=== PATIENT | male | born 1950 | race Caucasian/White ===

== ENCOUNTER → 2016-05-04 | Outpatient (CLI) | payer BC ==
[~2016-05-04] MED LIST: ASPEC81 PO; GARL10007 PO; GLIP5TAB11 PO; METF500T PO; MISC1CAP60 PO; MULT-506 PO; PRVC/40 PO; TADA5TAB11 PO; UBIQ1CAP4 PO; ZNTT/150 PO
--- NOTE | 2016-05-08 10:21 | CODING QUERY MEDICAL NECESSITY ---
SUPPORTING DIAGNOSIS NEEDED Dr. Rogers, A supporting diagnosis is required for the test/procedure performed on this patient in order for us to be reimbursed by the patient's insurance. Please provide a supporting diagnosis for the following test/procedure listed below next to the test name along with your signature. *If there is no additional diagnosis for this patient that would support the following test/procedure please document that below next to the test/procedure. Test(s)/Procedure(s) that require a supporting diagnosis: * [id number] PSA DIAGNOSIS: DATE OF SERVICE: 05/04/16 Provider Signature: Date: Thank you Ronak Woodward [facility] Information Management Once completed, please kindly fax back to [phone] For questions please call [phone]
== END | disposition home or self-care (01) ==
LOC: C.LAB1850 11:49
PROVIDERS: ATTEND Nurse Practitioner Family
DX: E55.9 Vitamin D deficiency, unspecified (principal); E29.1 Testicular hypofunction; M79.1 Myalgia

== ENCOUNTER → 2016-06-18 | Outpatient (CLI) | payer BC ==
[~2016-06-18] VITALS: Ht 180.3 cm; Wt 121.2 kg
[2016-06-18 16:11] VITALS: BP 144/88; PULSE 73; Ht 180.3 cm; Wt 121.2 kg
== END | disposition home or self-care (01) ==
LOC: C.NEUR 16:00
PROVIDERS: ATTEND Internal Medicine Pulmonary Disease
DX: G47.33 Obstructive sleep apnea (adult) (pediatric) (principal)

== ENCOUNTER → 2016-07-28 | Outpatient (CLI) | payer BC ==
[~2016-07-28] MED LIST changes: +ASPI-461 PO; +DOCU-94 PO; +MISCCAP80 PO; +TPRSR/25 PO
[2016-07-28 10:54] LABS: ALB/GLOB RATIO 1.1 (0.9-2); ALKALINE PHOSPHATASE 88 U/L (45-117); ALT/SGPT 28 U/L (12-78); AST/SGOT 18 U/L (15-37); BLOOD UREA NITROGEN 12 mg/dl (7-18); BUN/CREATININE RATIO 13.2 (10-20); CALCIUM 8.7 mg/dl (8.5-10.1); CARBON DIOXIDE 28 mmol/L (21-32); CHLORIDE 103 mmol/L (98-107); CREATININE 0.91 mg/dl (0.60-1.40); ESTIMATED AVERAGE GLUCOSE 171 mg/dl; GLUCOSE 179 mg/dl (70-99); HA1C FLAG Normal (Normal); HDL CHOLESTEROL 41 mg/dl; POTASSIUM 3.9 mmol/L (3.5-5.1); SODIUM 137 mmol/L (136-145)
[2016-07-28 10:57] LABS: CHOLESTEROL 184 mg/dl (0-200); CHOLESTEROL/HDL RATIO 4.5; LDL CHOLESTEROL CALCULATED 104 mg/dl; TRIGLYCERIDES 196 mg/dl (0-150); VERY LOW DENSITY LIPOPROT CALC 39 mg/dl
== END | disposition home or self-care (01) ==
LOC: C.LAB1850 09:27
PROVIDERS: ATTEND Nurse Practitioner Family
DX: E88.81 Metabolic syndrome and other insulin resistance (principal); I10 Essential (primary) hypertension; E78.00 Pure hypercholesterolemia, unspecified; E11.65 Type 2 diabetes mellitus with hyperglycemia; M54.5 Low back pain

== ENCOUNTER → 2016-10-23 | Outpatient (CLI) | payer BC ==
[~2016-10-23] MED LIST changes: -ASPI-461 PO; -DOCU-94 PO; -MISCCAP80 PO; -TPRSR/25 PO
[2016-10-23 10:10] LABS: BLOOD UREA NITROGEN 12 mg/dl (7-18); BUN/CREATININE RATIO 13.1 (10-20); CALCIUM 9.2 mg/dl (8.5-10.1); CARBON DIOXIDE 27 mmol/L (21-32); CHLORIDE 103 mmol/L (98-107); CREATININE 0.95 mg/dl (0.60-1.40); GLUCOSE 187 mg/dl (70-99); POTASSIUM 4.4 mmol/L (3.5-5.1); SODIUM 137 mmol/L (136-145)
[2016-10-23 10:13] LABS: ESTIMATED AVERAGE GLUCOSE 166 mg/dl; HA1C FLAG Normal (Normal)
== END | disposition home or self-care (01) ==
LOC: C.LAB1850 09:10
PROVIDERS: ATTEND Nurse Practitioner Family
DX: E11.65 Type 2 diabetes mellitus with hyperglycemia (principal)

== ENCOUNTER → 2016-12-29 | Outpatient (CLI) | payer BC ==
[~2016-12-29] VITALS: Ht 182.9 cm; Wt 119.6 kg
[2016-12-29 14:46] VITALS: BP 147/82; PULSE 71; Ht 182.9 cm; Wt 119.6 kg
== END | disposition home or self-care (01) ==
LOC: C.NEUR 13:55
PROVIDERS: ATTEND Internal Medicine Pulmonary Disease
DX: G47.33 Obstructive sleep apnea (adult) (pediatric) (principal)

== ENCOUNTER → 2017-01-22 | Outpatient (CLI) | payer BC ==
[2017-01-22 10:00] LABS: BASO % 0.6 %; BASO ABS # 0.04 K/uL (0-0.2); COMPLETE YES; EOS % 4.2 %; HEMATOCRIT 42.2 % (42-52); IG% 0.3 %; LYMPH % 35.6 %; LYMPH ABS # 2.36 K/uL (1.2-3.4); MEAN CORPUSCULAR HEMOGLOBIN 31.3 pg (25-34); MEAN CORPUSCULAR HGB CONC 34.8 g/dl (32-36); MEAN PLATELET VOLUME 9.9 fL (7.4-10.4); MONO % 8.5 %; NEUT % 50.8 %; PLATELET COUNT 230 K/uL (130-400); RED BLOOD COUNT 4.69 M/uL (4.7-6.1); WHITE BLOOD COUNT 6.62 K/uL (4.8-10.8)
[2017-01-22 10:30] LABS: ALT/SGPT 28 U/L (12-78); AST/SGOT 16 U/L (15-37); BLOOD UREA NITROGEN 15 mg/dl (7-18); BUN/CREATININE RATIO 17.2 (10-20); CALCIUM 8.6 mg/dl (8.5-10.1); CARBON DIOXIDE 26 mmol/L (21-32); CHLORIDE 103 mmol/L (98-107); CREATININE 0.85 mg/dl (0.60-1.40); GLUCOSE 166 mg/dl (70-99); POTASSIUM 4.3 mmol/L (3.5-5.1); SODIUM 136 mmol/L (136-145)
[2017-01-22 10:33] LABS: ALB/GLOB RATIO 1.1 (0.9-2); ALKALINE PHOSPHATASE 90 U/L (45-117); CHOLESTEROL 174 mg/dl (0-200); HDL CHOLESTEROL 43 mg/dl; LDL CHOLESTEROL CALCULATED 96 mg/dl; TRIGLYCERIDES 175 mg/dl (0-150); VERY LOW DENSITY LIPOPROT CALC 35 mg/dl
[2017-01-22 10:40] LABS: ESTIMATED AVERAGE GLUCOSE 166 mg/dl; HA1C FLAG Normal (Normal)
== END | disposition home or self-care (01) ==
LOC: C.LAB1850 09:18
PROVIDERS: ATTEND Nurse Practitioner Family
DX: E88.81 Metabolic syndrome and other insulin resistance (principal); E78.00 Pure hypercholesterolemia, unspecified; E11.65 Type 2 diabetes mellitus with hyperglycemia

== ENCOUNTER → 2017-04-30 | Outpatient (CLI) | payer BC ==
[~2017-04-30] MED LIST changes: -ASPEC81 PO; +ASPI-461 PO; +DOCU-94 PO; +MISCCAP80 PO; +TPRSR/25 PO
[2017-04-30 12:57] LABS: HEMOGLOBIN A1C 7.4 % (4.5-5.6)
[2017-04-30 16:02] LABS: BLOOD UREA NITROGEN 11 mg/dl (7-18); CALCIUM 9.2 mg/dl (8.5-10.1); CARBON DIOXIDE 28 mmol/L (21-32); CREATININE 0.92 mg/dl (0.60-1.40); GLUCOSE 230 mg/dl (70-99); POTASSIUM 3.8 mmol/L (3.5-5.1); SODIUM 135 mmol/L (136-145)
== END | disposition home or self-care (01) ==
LOC: C.LAB1850 11:00
PROVIDERS: ATTEND Nurse Practitioner Family
DX: E11.65 Type 2 diabetes mellitus with hyperglycemia (principal)

== ENCOUNTER → 2017-07-13 | Outpatient (CLI) | payer BC ==
[~2017-07-13] MED LIST changes: +RANI150T85 PO; -ZNTT/150 PO
[2017-07-13 12:19] LABS: BLOOD UREA NITROGEN 16 mg/dl (7-18); CARBON DIOXIDE 26 mmol/L (21-32); GLUCOSE 230 mg/dl (70-99); SODIUM 134 mmol/L (136-145)
== END | disposition home or self-care (01) ==
LOC: C.LAB1850 10:10
PROVIDERS: ATTEND Specialist
DX: I10 Essential (primary) hypertension (principal)

== ENCOUNTER 2023-12-07 21:50 | Observation (INO) ==
[2023-12-07 22:32] LABS: Basophils # (auto) 0.09 K/uL (0.00-0.20); Basophils % (auto) 1.1 %; Eosinophils # (auto) 0.18 K/uL (0.00-0.50); Eosinophils % (auto) 2.2 %; Hemoglobin 16.7 g/dl (14.0-18.0); Immature Granulocytes # (auto) 0.02 K/uL (0.01-0.20); Immature Granulocytes % (auto) 0.2 %; Lymphocytes # (auto) 3.53 K/uL (1.20-3.40); Lymphocytes % (auto) 42.5 %; Mean Corpuscular Hemoglobin 32.4 pg (25.0-34.0); Mean Corpuscular Hgb Conc 34.8 g/dL (32.0-36.0); Mean Corpuscular Volume 93.2 fL (80.0-100.0); Monocytes # (auto) 0.81 K/uL (0.11-0.59); Monocytes % (auto) 9.7 %; Neutrophils # (auto) 3.68 K/uL (1.40-6.50); Neutrophils % (auto) 44.3 %; Platelet Count 279 K/uL (130-400); RDW Coefficient of Variation 12.9 % (11.5-14.5); RDW Standard Deviation 44.4 fL (36.4-46.3); Red Blood Count 5.15 M/uL (4.70-6.10); White Blood Count 8.31 K/ul (4.8-10.8)
[2023-12-07 22:43] LABS: Albumin Globulin Ratio 1.5 (0.9-2); Albumin Level 4.8 gm/dl (3.4-5.0); BUN Creatinine Ratio 23.6 (10-20); Bilirubin,Total 0.7 mg/dl (0.2-1.0); Calcium 10.4 mg/dl (8.6-10.3); Creatinine Clr Calc Pharmacy 92.8 ml/min; Est GFR (African American) 98.3 ml/min; Est GFR (Non-African American) 84.8 ml/min; Globulin 3.2 gm/dl (2.5-4.0); Potassium 3.9 mmol/L (3.5-5.1)
[2023-12-07 22:50] LABS: Troponin I High Sensitivity 9.5 pg/ml (0-20)
[2023-12-07 23:31] LABS: INR 1.1 (0.9-1.1); Partial Thromboplastin Time 28 Seconds (21-31); Prothrombin Time 11.5 Seconds (9.0-12.0)
--- NOTE | 2023-12-07 23:32 | Emergency Department Note ---
Impression & Plan Acute cholecystitis, Gallstones ED Provider Note NAME: MARY NGUYEN AGE: 73 SEX: M : 1950 ARRIVES VIA: Walk-In INFORMANT: Patient, ED PROVIDER(S): Des Fields DO CHIEF COMPLAINT: Chest pain HPI: The patient is a 73-year-old male who presented to the emergency department for an evaluation of chest pain. The patient describes lower chest pain and upper abdominal pain which began acutely. He started having waxing waning of the symptoms throughout the last few hours. The patient notices pain into his back. He also notices nausea. He states the pain is since somewhat improved. The patient does not have a history of similar episodes in the past. The patient states he still has his gallbladder. ROS: See above HPI for pertinent positives & negatives. A total of 10 systems reviewed and were otherwise negative. PAST MEDICAL HISTORY: See Below PAST SURGICAL HISTORY: See Below FAMILY HISTORY: See Below SOCIAL HISTORY: See Below HOME MEDICATIONS: See Below ALLERGIES: See Below VITALS: See Below PHYSICAL EXAMINATION: GENERAL: Patient is awake alert in no acute distress patient is resting comfortably and showing no signs of anxiety EYES: The conjunctivae are clear. The pupils are round and reactive. EARS, NOSE, MOUTH AND THROAT: The nose is without any evidence of any deformity. Mucous membranes are moist. Tongue is midline. NECK: The neck is nontender and supple. RESPIRATORY: Normal respiratory effort is noted there is no evidence of wheezing rhonchi or rales CARDIOVASCULAR: Regular rate and rhythm noted there no murmurs rubs or gallops normal S1 normal S2. GASTROINTESTINAL: The abdomen was mildly distended. There was right upper quadrant tenderness to palpation which was moderate. MUSCULOSKELETAL/EXTREMITIES: There is no evidence of gross deformity full range of motion is noted in the hips and shoulders. SKIN: There is no obvious evidence of any rash. There are no petechiae, pallor or cyanosis noted. NEUROLOGIC: Patient is awake alert and oriented x3 MEDICAL DECISION MAKING: The patient is a 73-year-old male who presented to the emergency department for an evaluation of chest pain and abdominal pain. The patient's EKG did not show any acute change from previous. The patient's cardiac biomarker was negative. He was found to have slight elevation in his liver function studies but his bilirubin was normal. I discussed the patient's laboratory and radiographic studies with him. Given his findings on ultrasound I discussed his condition with the on-call general surgical group as well as the on-call [facility] hospitalist. They have agreed to evaluate the patient in the emergency department for further management and disposition. The patient was found to have signs of ductal dilatation. This was intrahepatic. The patient was also found to have gallstones. Triage Nursing notes reviewed. Prior medical records reviewed Vital Signs: reviewed and remarkable for no significant abnormalities Differential diagnosis: Cardiac ischemia, aortic dissection, pulmonary embolism, pneumothorax, pneumonia, pericarditis, myocarditis, esophageal rupture, GERD, cholecystitis, pancreatitis, musculoskeletal, as well as other pathologies. ER treatment provided: See below Diagnostics interpreted by me: ECG: EKG was obtained in the emergency department. My interpretation is atrial fibrillation at 76 bpm. Inferior Q waves were noted. There was no acute ST segment abnormalities noted. There were no PVCs. This was compared to a tracing from November 22, 2020. No changes were noted. Cardiac Monitoring: An order was placed for continuous cardiac monitoring. The monitor shows a rate of 70/min with sinus rhythm. Laboratory studies: As stated above and show below. Imaging studies: See below. Radiographic imaging was reviewed by myself Consultation(s): I discussed this case with Dr. King who is on-call for the [facility]ist group. They will evaluate the patient in the emergency department. I discussed this case with Joni who is on for general surgery. Past Med/Surg History Problem List (Updated 12/08/23 @ 01:40 by Des Fields DO) Gallstones (Acute) Acute cholecystitis (Acute) Cholelithiasis Hypercholesterolemia Hypertension (Chronic) Grief Atrial fibrillation Chronic idiopathic urticaria Urgency of urination Erectile dysfunction Spondylolisthesis at L5-S1 level Insufficient sleep syndrome Obstructive sleep apnea syndrome, mild (Chronic) Dysmetabolic syndrome X (Chronic) Benign prostatic hyperplasia with urinary obstruction (Chronic) Hypothyroidism Type 2 diabetes mellitus with insulin therapy Medical History History of colon polyps Hx of fall 07/01, broke 5 ribs Lumbar radicular pain History of COVID-30 APR 2020 Sleep apnea MILD, CPAP History of anesthesia reaction WHEN WAKING UP FROM SURGERY IN [place] WAS AGITATED Back problem Memory problem History of fall from ladder NOV 2020 - FX PELVIS, FX RIBS - HOSPITALIZED AT [facility] BPH (benign prostatic hyperplasia) Vitamin D deficiency Paroxysmal atrial fibrillation 2019 on magaly merino w/ Dr Weaver; no hx cardioversion Obesity History of diverticulosis Surgical History History of colonoscopy History of circumcision AGE 9 History of surgery D/T FALL ACCIDENT NOV 2020 - - ON RIGHT WRIST AND RIGHT Pelvis Status post hip surgery NOV 2020/ Status post wrist surgery NOV 2020/ S/P shoulder surgery HX ROTATOR CUFF LEFT SHOULDER Family History Brother Myocardial infarction Diabetes Father Prostate cancer Heart disease Mother Diabetes Denies family history of Colon cancer Ovarian cancer Breast cancer Social History Smoking Status: Never smoker Tobacco Type: Smokeless Tobacco (Dip or Chew) Second Hand Exposure: No; Do You Dip or Chew Tobacco: No (quit 35 years ago); Hx Alcohol Use: Yes Alcohol type: beer, wine and hard liquor Alcohol Intake Frequency: 2-3 x/Week Hx Substance Use: No Preferred Language: Trinidadian Communication Ability: Effective Visual Impairment: No Limitations Hearing Ability: Normal Ict Educator Required: No Beliefs That Will Affect Care: None marital status: / Current Living Situation: Alone current occupational status: retired How many Children do You have: 1 Feels Safe at Home: Yes Childhood Exposure to Second-Hand Smoke: Yes Diet: regular Dental Care, Regularly: Yes Physical Activity Frequency: 3-4 Times per Week Seatbelt Use: always Sunscreen Use: Yes Do you think of yourself as: straight/heterosexual Gender Identity: Male Assistive Devices: CPAP and Glasses Allergies Allergies Allergy/AdvReac Type Severity Reaction Status Date / Time bacitracin [From Polysporin] Allergy Intermediate red and Verified 12/02/23 16:37 sore iodine Allergy Intermediate HIVES Verified 12/02/23 16:37 latex Allergy Intermediate HIVES, LIP Verified 12/02/23 16:37 SWELLING polymyxin B [From Polysporin] Allergy Intermediate red and Verified 12/02/23 16:37 sore tetracycline Allergy Intermediate HIVES Verified 12/02/23 16:37 codeine Allergy Unknown PT NOT SURE Verified 12/02/23 16:37 doxazosin Allergy Unknown PT NOT Verified 12/02/23 16:37 SURE, DOESN'T RECALL THIS MEDICATION NSAIDS (Non-Steroidal Allergy Unknown avoid due Verified 12/02/23 16:37 Anti-Inflamma to health Home Meds Home Medications Medication Instructions Recorded Confirmed coenzyme Q10 100 mg capsule (Co 100 mg PO QAM 09/26/18 12/08/23 Q-10) multivitamin (Daily Multi-Vitamin 1 tab PO QAM 09/26/18 12/08/23 tablet) rosuvastatin 5 mg tablet (Crestor) 5 mg PO HS 09/11/20 12/08/23 cholecalciferol (vitamin D3) 125 125 mcg PO HS 11/22/20 12/08/23 mcg (5,000 unit) capsule (Dialyvite Vitamin D) gabapentin 300 mg capsule 300 mg PO BID 12/18/20 12/08/23 docusate sodium 100 mg capsule 100 mg PO BID Health Maintenance 08/19/21 12/08/23 (Colace) saw palmetto 450 mg capsule 450 mg PO QAM 10/03/21 12/08/23 metoprolol succinate 25 mg 25 mg PO QAM 05/25/22 12/08/23 tablet,extended release 24 hr insulin degludec 200 unit/mL (3 36 unit subcut HS 12/08/23 12/08/23 mL) subcutaneous pen (Tresiba FlexTouch U-200 insulin) Previous Rx's Medication Instructions Recorded blood sugar diagnostic (Contour #300 ea 07/21/22 Test Strips) lancets 33 gauge (BD Ultra Fine #300 ea 07/21/22 Lancets) pen needle, diabetic 32 gauge x #100 ea 07/21/22 532" (Comfort EZ Pen [place]) apixaban 5 mg tablet (Eliquis) 5 mg PO BID #180 tabs 03/01/23 metformin 1,000 mg tablet 1,000 mg PO BID Type 2 Diabetes 90 03/01/23 days #180 tabs tadalafil 20 mg tablet 20 mg PO UD PRN Sexual Activity 04/28/23 #10 tabs tamsulosin 0.4 mg capsule (Flomax) 0.4 mg PO HS #90 caps 04/28/23 levothyroxine 75 mcg tablet 75 mcg PO DAILY #30 tabs 06/28/23 lisinopril 10 mg tablet (Zestril) 10 mg PO BID #180 tabs 12/02/23 Results & Data (ED) Vital Signs Vital Signs - 24 hr 12/07/23 21:52 12/07/23 23:51 12/08/23 01:00 Temperature 36.7 C Temperature Source Oral Pulse Rate 77 Pulse Rate [Apical] 69 70 Respiratory Rate 18 18 19 Respiratory Effort / Characteristics Non-Labored Respiratory Depth Normal Respiratory Pattern Regular Blood Pressure 183/98 H Blood Pressure [Right Arm] 150/81 H 150/81 H Blood Pressure Mean 126 Blood Pressure Mean [Right Arm] 104 104 Pulse Oximetry 99 98 96 Oxygen Delivery Method Room Air Room Air Room Air Sepsis Recent Fever Within 48 Hours No Sepsis New/Unexplained Change in Mental Status N/A Sepsis Action Taken by Nursing No Action Required 12/08/23 01:15 12/08/23 01:16 12/08/23 01:16 Temperature Temperature Source Pulse Rate Pulse Rate [Apical] Respiratory Rate Respiratory Effort / Characteristics Respiratory Depth Respiratory Pattern Blood Pressure Blood Pressure [Right Arm] Blood Pressure Mean Blood Pressure Mean [Right Arm] Pulse Oximetry 98 81 L 94 Oxygen Delivery Method Room Air Room Air Room Air Sepsis Recent Fever Within 48 Hours Sepsis New/Unexplained Change in Mental Status Sepsis Action Taken by Usp Medications Current Medication List: was personally reviewed by me Laboratory Data Attestation: I reviewed the patient's lab results. 12/07/23 22:12 12/07/23 22:12 Lab Results 12/07/23 Range/Units 22:12 WBC 8.31 (4.8-10.8) K/ul RBC 5.15 (4.70-6.10) M/uL Hgb 16.7 (14.0-18.0) g/dl Hct 48.0 (42.0-52.0) % MCV 93.2 (80.0-100.0) fL MCH 32.4 (25.0-34.0) pg MCHC 34.8 (32.0-36.0) g/dL RDW Std Deviation 44.4 (36.4-46.3) fL RDW Coeff of [place]lyse 12.9 (11.5-14.5) % Plt Count 279 (130-400) K/uL MPV 10.0 (9.4-12.4) fL Immature Gran % (Auto) 0.2 % Neut % (Auto) 44.3 % Lymph % (Auto) 42.5 % [place] % (Auto) 9.7 % Eos % (Auto) 2.2 % Baso % (Auto) 1.1 % Neut # (Auto) 3.68 (1.40-6.50) K/uL Lymph # (Auto) 3.53 H (1.20-3.40) K/uL [place] # (Auto) 0.81 H (0.11-0.59) K/uL Eos # (Auto) 0.18 (0.00-0.50) K/uL Baso # (Auto) 0.09 (0.00-0.20) K/uL Immature Gran # (Auto) 0.02 (0.01-0.20) K/uL PT 11.5 (9.0-12.0) Seconds INR 1.1 (0.9-1.1) APTT 28 (21-31) Seconds PTT Ratio 1.0 Sodium 138 (136-145) mmol/L Potassium 3.9 (3.5-5.1) mmol/L Chloride 100 (98-107) mmol/L Carbon Dioxide 28 (21-32) mmol/L Anion Gap 10 (3-11) BUN 21 (6-23) mg/dl Creatinine 0.89 (0.6-1.4) mg/dl Est Cr Clr Drug Dosing 92.8 ml/min Est GFR ( Amer) 98.3 ml/min Est GFR (Non-Af Amer) 84.8 ml/min BUN/Creatinine Ratio 23.6 H (10-20) Glucose 127 H (70-99(Fasting)) mg/dl Calcium 10.4 H (8.6-10.3) mg/dl Total Bilirubin 0.7 (0.2-1.0) mg/dl AST 91 H (13-39) U/L ALT 56 H (7-52) U/L Alkaline Phosphatase 105 H (34-104) U/L Troponin I High Sens 9.5 (0-20) pg/ml Total Protein 8.0 (6.0-8.3) gm/dl Albumin 4.8 (3.4-5.0) gm/dl Globulin 3.2 (2.5-4.0) gm/dl Albumin/Globulin Ratio 1.5 (0.9-2) Lipase 60 (11-82) U/L Administered Medications Discontinued Medications Piperacillin Sod/Tazobactam Sod (Zosyn) 4.5 gm in 100 mls @ 200 mls/hr IV NOW ONE Stop: 12/08/23 01:00 Last Admin: 12/08/23 01:17 Dose: 200 mls/hr Documented By: ROBE Imaging Data Attestation: I personally reviewed and interpreted this imaging study as follows: My Impression: 1 view chest x-ray was obtained in the emergency department. My interpretation is no free air or definite infiltrate, final report pending Discharge Plan Visit Data Chief Complaint: Chest Pain Stated Complaint: CHEST PAIN ED Provider: Des Fields Discharge Problem: Acute cholecystitis, Gallstones Patient Disposition: Being Evaluated by Hospitalist Forms Stand Alone Forms: My [facility] Prescriptions Prescriptions: No Action rosuvastatin [Crestor] 5 mg tablet 5 mg PO HS Rx Instructions: prescribed by Cardiology (Dr. Weaver) (DME) lancets [BD Ultra Fine Lancets] 33 gauge misc See Rx Instructions .ROUTE .MEDSUPPLY Qty: 300 3RF Dose Instruction: As directed Rx Instructions: TEST THREE TIMES DAILY; DX CODE- E11.65 (DME) Contour Test Strips Strip See Rx Instructions .ROUTE .MEDSUPPLY Qty: 300 3RF Dose Instruction: As directed Rx Instructions: TEST THREE TIMES DAILY; DX CODE- E11.65 (DME) pen needle, diabetic [Comfort EZ Pen [place]] 32 gauge x 5/32" needle See Rx Instructions .Route Qty: 100 3RF Rx Instructions: As directed with insulin Eliquis 5 mg tablet 5 mg PO BID Qty: 180 3RF metformin 1,000 mg tablet 1,000 mg PO BID 90 Days Qty: 180 3RF metoprolol succinate 25 mg tablet extended release 24 hr 25 mg PO QAM levothyroxine 75 mcg tablet 75 mcg PO DAILY Qty: 30 8RF gabapentin 300 mg capsule 300 mg PO BID Patient Comments: KEEP FORGETTING TO TAKE - AVERAGES 1-2 TIMES A DAY tadalafil 20 mg tablet 20 mg PO UD PRN (Reason: Sexual Activity) Qty: 10 11RF tamsulosin [Flomax] 0.4 mg capsule 0.4 mg PO HS Qty: 90 3RF lisinopril [Zestril] 10 mg tablet 10 mg PO BID Qty: 180 3RF coenzyme Q10 [Co Q-10] 100 mg capsule 100 mg PO QAM Patient Comments: (Ubiquinol) multivitamin [Daily Multi-Vitamin] tablet 1 tab PO QAM docusate sodium [Colace] 100 mg capsule 100 mg PO BID saw palmetto 450 mg Capsule 450 mg PO QAM cholecalciferol (vitamin D3) [Dialyvite Vitamin D] 125 mcg (5,000 unit) capsule 125 mcg PO HS insulin degludec [Tresiba FlexTouch U-200] 200 unit/mL (3 mL) insulin pen 36 unit SQ HS Referrals Referrals: Ventura Rogers III, CRNP [Primary Care Provider] -
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
[2023-12-08] MEDS: PIPERACILLIN/TAZOBACTAM 4.5 GM/100 ML BAG IV ONE (01:17)
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
--- NOTE | 2023-12-08 03:00 | Ultrasound Report ---
Exam(s): US GALLBLADDER EXAM: US Abdomen Limited, Gallbladder CLINICAL HISTORY: Reason for exam: RUQ Pain. TECHNIQUE: Real-time ultrasound of the right upper quadrant with image documentation. COMPARISON: CT scan dated 11/22/2020. FINDINGS: Gallbladder: The gallbladder is distended containing calculi. No wall thickening. A positive Bravo sign was reported. Common bile duct: Unremarkable as visualized. No stones. The common bile duct measured 7 mm.. Pancreas: The pancreas is limitedly visualized. The visualized portions are unremarkable.. Liver: There is intrahepatic biliary ductal dilatation present. Right kidney: No evidence of calculi or hydronephrosis. IMPRESSION: Gallbladder is distended containing calculi. A+ Bravo sign is reported. There is intrahepatic biliary ductal dilatation present. The common bile duct is prominent at 7 mm. For further evaluation, consider correlation with MRI/MRCP. Electronically signed by: Jules Turner MD 12/08/23 02:59 AM
[2023-12-08] MEDS ORDERED: GLUCAGON FOR INJ 1 MG VIAL SQ PRN (04:04)
[2023-12-08] MEDS ORDERED: DEXTROSE 50% 50 ML SYRINGE IV PRN (04:04)
[2023-12-08] MEDS ORDERED: CARBOHYDRATES FOR HYPOGLYCEMIA PO PRN (04:04)
[2023-12-08] MEDS ORDERED: MoRPHine SULFATE 2 MG/ML CARP IV PRN (04:04)
[2023-12-08] MEDS ORDERED: ONDANSETRON INJ 2 MG/ML 2 ML VIAL IV PRN (04:04)
[2023-12-08] MEDS ORDERED: GLUCOSE 10 TAB/TUBE PO PRN (04:04)
[2023-12-08] MEDS ORDERED: ACETAMINOPHEN 325 MG TAB PO PRN (04:04)
[2023-12-08] MEDS ORDERED: GLUCOSE 40% GEL 15 GM TUBE PO PRN (04:04)
[2023-12-08] MEDS: MoRPHine SULFATE 4 MG/ML 1 ML CARP\\VIAL IV PRN (04:17)
[2023-12-08] MEDS: LACTATED RINGER'S 1,000 ML IV SCH (04:54)
[2023-12-08] MEDS ORDERED: ALUMINUM/MAGNESIUM SUSP 30 ML UDC PO PRN (05:59)
[2023-12-08] MEDS: INSULIN ASPART PER UNIT CHARGE SC SCH ×2 (06:30→17:34)
[2023-12-08] MEDS: LEVOTHYROXINE SODIUM 75 MCG TABLET PO SCH (06:31)
--- NOTE | 2023-12-08 06:48 | XRay Report ---
XR chest 1V portable CLINICAL HISTORY: Chest pain, nonspecific COMPARISON STUDY: Chest CT November 22, 2020. Chest radiograph September 05, 2021. FINDINGS: Lung volumes are normal. Lungs are clear. There is no pneumothorax or pleural effusion. Mod erate cardiomegaly is unchanged. Mediastinal contours are normal. There is no evidence for pulmonary edema. IMPRESSION: No acute cardiopulmonary findings. Stable cardiomegaly. ACT 112: Negative or not required by law. Electronically signed by: Jayme Coronel M.D. 12/08/2023 6:47 AM
[2023-12-08 07:53] LABS: Basophils # (auto) 0.03 K/uL (0.00-0.20); Basophils % (auto) 0.3 %; Eosinophils # (auto) 0.01 K/uL (0.00-0.50); Eosinophils % (auto) 0.1 %; Hematocrit (blood only) 45.1 % (42.0-52.0); Hemoglobin 15.3 g/dl (14.0-18.0); Immature Granulocytes # (auto) 0.03 K/uL (0.01-0.20); Immature Granulocytes % (auto) 0.3 %; Lymphocytes # (auto) 1.05 K/uL (1.20-3.40); Lymphocytes % (auto) 11.1 %; Mean Corpuscular Hemoglobin 32.1 pg (25.0-34.0); Mean Corpuscular Hgb Conc 33.9 g/dL (32.0-36.0); Mean Corpuscular Volume 94.7 fL (80.0-100.0); Monocytes % (auto) 7.4 %; Neutrophils # (auto) 7.61 K/uL (1.40-6.50); Neutrophils % (auto) 80.8 %; Platelet Count 243 K/uL (130-400); RDW Coefficient of Variation 12.8 % (11.5-14.5); RDW Standard Deviation 44.5 fL (36.4-46.3); Red Blood Count 4.76 M/uL (4.70-6.10); White Blood Count 9.43 K/ul (4.8-10.8)
[2023-12-08] MEDS: PIPERACILLIN/TAZOBACTAM 4.5 GM/100 ML BAG IV SCH (08:13)
[2023-12-08 08:21] LABS: Albumin Globulin Ratio 1.5 (0.9-2); Albumin Level 4.3 gm/dl (3.4-5.0); BUN Creatinine Ratio 22.2 (10-20); Bilirubin,Total 2.1 mg/dl (0.2-1.0); Calcium 9.2 mg/dl (8.6-10.3); Est GFR (African American) 102.2 ml/min; Est GFR (Non-African American) 88.2 ml/min; Globulin 2.8 gm/dl (2.5-4.0); Potassium 4.4 mmol/L (3.5-5.1); Total Protein 7.1 gm/dl (6.0-8.3)
[2023-12-08] MEDS: METOPROLOL SUCC 25MG EXT REL TAB PO SCH (09:56)
[2023-12-08] MEDS: GABAPENTIN 300 MG CAP PO SCH (09:56)
[2023-12-08] MEDS: lisinopril 10 MG TAB PO SCH (09:56)
[2023-12-08] MEDS: DOCUSATE SODIUM 100 MG CAP PO SCH (09:57)
--- NOTE | 2023-12-08 11:16 | Gastrointestinal Consultation ---
Date of Consultation December 08, 2023 Assessment & Plan (1) Gallstones: (2) Elevated liver enzymes: Plan Patient is a 73 year old male who came to the ED with complaints of sudden onset chest pain/abdominal pain associated with nausea/emesis/reflux. Imaging showing gallstones and intrahepatic biliary dilation. Surgery also following. He tells me that since admission his symptoms have resolved. - continue to trend LFTs. - Patient is ordered an MRCP, will await these results. further recommendations to follow. Supervising Physician Co-Signing Physician Notes I saw and examined this patient with our nurse practitioner and agree with her assessment and plan. Clinically improved pain resolved. Consistent with resolved acute cholecystitis versus biliary colic. MRI study did not reveal common bile duct stones. Patient seen by surgery planning elective outpatient cholecystectomy. History of Present Illness Reason for Consultation: CBD dilation, elevated LFTs Requesting Physician: Rodolfo Tejada DO Attending Physician: Rodolfo Tejada DO History of Present Illness Patient is a 73 year old male with history of a fib on eliquis, HTN, HLP, DM, Hypothyroidism and GEORGE who presented to the ED 12/06 with sudden onset of chest pain that radiated into his back and RUQ. Associated with nausea and emesis/reflux. Patient was in his usual state of health until he had abrupt onset of the pain. He does not feel this was triggerd by a meal and states it just seem to come out of nowhere. He was concerned for an WA, so he came to the ED for evaluation. Upon evaluation, he was found to have an US showing distended gallbladder with calculi, positive rdz sign, intrahepatic duct dilation and CBD 7mm. He has had some rise in his LFTs since he has been evaluated. He tells me that his symptoms have seemingly resolved at this time. he is awaiting an MRCP to further evaluate. 12/08/23 t bili 2.1, AST 302, ALT 255, Alk phos 131. 12/07/23 t bili 0.7, AST 91, ALT 56, Alk phos 105. 04/21/23 LFTs wnl. Allergies Allergy/AdvReac Type Severity Reaction Status Date / Time bacitracin [From Polysporin] Allergy Intermediate red and Verified 12/02/23 16:37 sore iodine Allergy Intermediate HIVES Verified 12/02/23 16:37 latex Allergy Intermediate HIVES, LIP Verified 12/02/23 16:37 SWELLING polymyxin B [From Polysporin] Allergy Intermediate red and Verified 12/02/23 16:37 sore tetracycline Allergy Intermediate HIVES Verified 12/02/23 16:37 codeine Allergy Unknown PT NOT SURE Verified 12/02/23 16:37 doxazosin Allergy Unknown PT NOT Verified 12/02/23 16:37 SURE, DOESN'T RECALL THIS MEDICATION NSAIDS (Non-Steroidal Allergy Unknown avoid due Verified 12/02/23 16:37 Anti-Inflamma to health Home Medications Medication Instructions Recorded Confirmed Type coenzyme Q10 100 mg capsule (Co 100 mg PO QAM 09/26/18 12/08/23 History Q-10) multivitamin (Daily Multi-Vitamin 1 tab PO QAM 09/26/18 12/08/23 History tablet) rosuvastatin 5 mg tablet (Crestor) 5 mg PO HS 09/11/20 12/08/23 History cholecalciferol (vitamin D3) 125 125 mcg PO HS 11/22/20 12/08/23 History mcg (5,000 unit) capsule (Dialyvite Vitamin D) gabapentin 300 mg capsule 300 mg PO BID 12/18/20 12/08/23 History docusate sodium 100 mg capsule 100 mg PO BID Health Maintenance 08/19/21 12/08/23 History (Colace) saw palmetto 450 mg capsule 450 mg PO QAM 10/03/21 12/08/23 History metoprolol succinate 25 mg 25 mg PO QAM 05/25/22 12/08/23 History tablet,extended release 24 hr blood sugar diagnostic (Contour #300 ea 07/21/22 12/02/23 Rx Test Strips) lancets 33 gauge (BD Ultra Fine #300 ea 07/21/22 12/02/23 Rx Lancets) pen needle, diabetic 32 gauge x #100 ea 07/21/22 12/02/23 Rx 5/32" (Comfort EZ Pen [place]) apixaban 5 mg tablet (Eliquis) 5 mg PO BID #180 tabs 03/01/23 12/08/23 Rx metformin 1,000 mg tablet 1,000 mg PO BID Type 2 Diabetes 90 03/01/23 12/08/23 Rx days #180 tabs tadalafil 20 mg tablet 20 mg PO UD PRN Sexual Activity 04/28/23 12/08/23 Rx #10 tabs tamsulosin 0.4 mg capsule (Flomax) 0.4 mg PO HS #90 caps 04/28/23 12/08/23 Rx levothyroxine 75 mcg tablet 75 mcg PO DAILY #30 tabs 06/28/23 12/08/23 Rx lisinopril 10 mg tablet (Zestril) 10 mg PO BID #180 tabs 12/02/23 12/08/23 Rx insulin degludec 200 unit/mL (3 36 unit subcut HS 12/08/23 12/08/23 History mL) subcutaneous pen (Tresiba FlexTouch U-200 insulin) Patient History Medical History History of colon polyps Hx of fall 07/01, broke 5 ribs Lumbar radicular pain History of COVID-30 APR 2020 Sleep apnea MILD, CPAP History of anesthesia reaction WHEN WAKING UP FROM SURGERY IN [place] WAS AGITATED Back problem Memory problem History of fall from ladder NOV 2020 - FX PELVIS, FX RIBS - HOSPITALIZED AT [facility] BPH (benign prostatic hyperplasia) Vitamin D deficiency Paroxysmal atrial fibrillation 2018 on eliquis, follows w/ Dr Weaver; no hx cardioversion Obesity History of diverticulosis Surgical History History of colonoscopy History of circumcision AGE 9 History of surgery D/T FALL ACCIDENT NOV 2020 - [facility] - ON RIGHT WRIST AND RIGHT Pelvis Status post hip surgery NOV 2020 Status post wrist surgery NOV 2020/ S/P shoulder surgery HX ROTATOR CUFF LEFT SHOULDER Family History Brother Myocardial infarction Diabetes Father Prostate cancer Heart disease Mother Diabetes Denies family history of Colon cancer Ovarian cancer Breast cancer Social History Smoking Status: Never smoker Tobacco Type: Smokeless Tobacco (Dip or Chew) Second Hand Exposure: No; Do You Dip or Chew Tobacco: No (quit 35 years ago); Hx Alcohol Use: Yes Alcohol type: wine Alcohol Intake Frequency: 2-3 x/Week Hx Substance Use: No Preferred Language: Vietnamese Communication Ability: Effective Visual Impairment: No Limitations Hearing Ability: Normal Assistant Fitness Manager Required: No Beliefs That Will Affect Care: None marital status: / Current Living Situation: Alone Current Living Situation Comment: alone, family lives out of town current occupational status: retired How many Children do You have: 1 Feels Safe at Home: Yes Safety Concerns: Feels Safe At This Time Childhood Exposure to Second-Hand Smoke: Yes Diet: regular Dental Care, Regularly: Yes Physical Activity Frequency: 3-4 Times per Week Seatbelt Use: always Sunscreen Use: Yes Do you think of yourself as: straight/heterosexual Gender Identity: Male Assistive Devices: None Review of Systems Review of Systems: All systems reviewed & are unremarkable except as noted in HPI & below Physical Exam Constitutional: WD/WN, vitals as above Respiratory: normal respiratory effort, lungs clear to auscultation Cardiovascular: Rate/Rhythm: regular rate and regular rhythm Gastrointestinal (Abdomen): normal bowel sounds, soft, nontender, no hepatosplenomegaly Psychiatric: Orientation: alert and oriented x 3 Affect: euthymic affect Results & Data Vital Signs (Past 12 Hours) Vital Signs Temp Pulse Pulse Pulse Resp BP Pulse Ox 12/08/23 07:53 98.1 F 79 16 133/88 95 12/08/23 04:00 98.8 F 68 68 20 157/89 H 97 12/08/23 03:00 65 19 129/79 92 12/08/23 01:16 94 12/08/23 01:16 81 L 12/08/23 01:15 98 12/08/23 01:00 70 19 150/81 H 96 12/07/23 23:51 69 18 150/81 H 98 O2 Del Method 12/08/23 07:53 Room Air 12/08/23 04:00 Room Air 12/08/23 03:00 Room Air 12/08/23 01:16 Room Air 12/08/23 01:16 Room Air 12/08/23 01:15 Room Air 12/08/23 01:00 Room Air 12/07/23 23:51 Room Air Laboratory Results Laboratory Results - last 48 hr 12/07/23 12/08/23 12/08/23 22:12 06:02 07:33 WBC 8.31 9.43 RBC 5.15 4.76 Hgb 16.7 15.3 Hct 48.0 45.1 MCV 93.2 94.7 MCH 32.4 32.1 MCHC 34.8 33.9 RDW Std Deviation 44.4 44.5 RDW Coeff of [place]lyse 12.9 12.8 Plt Count 279 243 MPV 10.0 10.0 Immature Gran % (Auto) 0.2 0.3 Neut % (Auto) 44.3 80.8 Lymph % (Auto) 42.5 11.1 [place] % (Auto) 9.7 7.4 Eos % (Auto) 2.2 0.1 Baso % (Auto) 1.1 0.3 Neut # (Auto) 3.68 7.61 H Lymph # (Auto) 3.53 H 1.05 L [place] # (Auto) 0.81 H 0.70 H Eos # (Auto) 0.18 0.01 Baso # (Auto) 0.09 0.03 Immature Gran # (Auto) 0.02 0.03 PT 11.5 INR 1.1 APTT 28 PTT Ratio 1.0 Sodium 138 135 L Potassium 3.9 4.4 Chloride 100 101 Carbon Dioxide 28 28 Anion Gap 10 6 BUN 21 18 Creatinine 0.89 0.81 Est Cr Clr Drug Dosing 92.8 102.0 Est GFR ( Amer) 98.3 102.2 Est GFR (Non-Af Amer) 84.8 88.2 BUN/Creatinine Ratio 23.6 H 22.2 H Glucose 127 H 160 H POC Glucose 158 H Calcium 10.4 H 9.2 Total Bilirubin 0.7 2.1 H D AST 91 H 302 H ALT 56 H 255 H Alkaline Phosphatase 105 H 131 H Troponin I High Sens 9.5 Total Protein 8.0 7.1 Albumin 4.8 4.3 Globulin 3.2 2.8 Albumin/Globulin Ratio 1.5 1.5 Lipase 60 12/08/23 12:45 WBC RBC Hgb Hct MCV MCH MCHC RDW Std Deviation RDW Coeff of Elyse Plt Count MPV Immature Gran % (Auto) Neut % (Auto) Lymph % (Auto) [place] % (Auto) Eos % (Auto) Baso % (Auto) Neut # (Auto) Lymph # (Auto) [place] # (Auto) Eos # (Auto) Baso # (Auto) Immature Gran # (Auto) PT INR APTT PTT Ratio Sodium Potassium Chloride Carbon Dioxide Anion Gap BUN Creatinine Est Cr Clr Drug Dosing Est GFR ( Amer) Est GFR (Non-Af Amer) BUN/Creatinine Ratio Glucose POC Glucose 116 H Calcium Total Bilirubin AST ALT Alkaline Phosphatase Troponin I High Sens Total Protein Albumin Globulin Albumin/Globulin Ratio Lipase Coding Level of Care Code 26069 INT INP/OBS CARE MIN Diagnoses Gallstones K80.20 Elevated liver enzymes R74.8
--- NOTE | 2023-12-08 13:35 | Magnetic Resonance Report ---
MRCP CLINICAL HISTORY: Cholelithiasis, r/o choledocholithiasis TECHNIQUE: Utilizing a 1.5 Linda magnet and dedicated coil, multiplanar, multiecho imaging of the upp er abdomen was performed utilizing heavily T2 weighted pulsing sequences without IV contrast. COMPARISON STUDY: CT of the abdomen and pelvis November 22, 2020. MRI of the abdomen June 19, 2014. R ight upper quadrant ultrasound December 07, 2023. FINDINGS: There is no intra or extrahepatic biliary ductal dilatation. No common bile duct calculi ar e identified although the 3-D MRCP sequence is compromised by motion artifact. No pancreatic ductal d ilatation is present. There is no peripancreatic fluid. Multiple gallstones within gallbladder presen t. There is mild gallbladder wall thickening. 1.1 cm T2 hyperintense left renal lesion likely reflect s a cyst. Spleen, adrenal glands and pancreas are unremarkable. There is no abdominal lymphadenopathy or ascites. Caliber of visualized small and large bowel are normal. IMPRESSION: 1. No biliary ductal dilatation . No common bile duct calculi identified although exam mildly comprom ised by motion artifact. 2. Cholelithiasis with mild gallbladder wall thickening. The findings could reflect acute or chronic cholecystitis. ACT 112: Negative or not required by law. Electronically signed by: Jayme Coronel M.D. 12/08/2023 1:33 PM
--- NOTE | 2023-12-08 14:11 | Hospitalist Progress Note ---
Date of Service December 08, 2023 Assessment & Plan (1) Cholelithiasis: Plan: -US was concerning for cholecystitis with + murphys sign -LFT's up-trending -MRCP obtained: Negative for Choledocholithiasis -GI following- following LFT trend, MRCP -Pain has resolved -General surgery consulted; Recommendations appreciated- given pain has improved surgery recommends initiation low fat diet and possible outpatient follow up for cholecystectomy if continues to improve. -Patient's preference is for outpatient cholecystectomy as opposed to inpatient -Will continue abx with Zosyn for now- likely can transition to short course of po Augmentin in the AM if continues to improve -Follow up LFT's in the AM- possible passed gallstone (2) Type 2 diabetes mellitus with insulin therapy: Plan: Diabetes - chronic -Continue lantus 36u qHS- cleared for po intake per surgery will keep dose for now -ISS -Gabapentin (3) Atrial fibrillation: Plan: -Patient has history of A fib -Continue metoprolol -Eliquis on hold for possible surgical intervention- this will need to be resumed in the AM if surgery determines no intervention (4) Hypertension: Plan: -Continue Lisinopril. Was recently increased as an outpatient to 10mg po BID. Patient has been taking it BID but does not like how it makes him feel- will continue daily dosing for now as remains normotensive. -Continue Metoprolol (5) Hypothyroidism: Plan: -Continue Synthroid (6) Dyslipidemia: Plan: -Stable -Continue Crestor (7) BPH (benign prostatic hyperplasia): Plan: -Continue Flomax Admission and Anticipated Discharge Date Admission Date: December 08, 2023 Subjective Patient seen and evaluated bedside Patient is currently in NAD Reports yesterday he has severe sudden onset abdominal pain- which has now resolved He denies any fevers, chills nausea or vomiting Review of Systems Review of Systems: As indicated in HPI Physical Exam Physical Exam: The patient is awake, alert and oriented 3, well developed and well nourished, normocephalic and atraumatic, lying in bed and in no acute distress. HEENT--PERRL, EOMI, mucous membranes and oropharynx mildly dry Heart--normal S1 and S2. No murmurs, rubs or gallops. Lungs--clear bilaterally, no respiratory distress, no accessory muscle use. Abdomen--normal bowel sounds and soft.Mild tenderness to palpation of RUQ- without associated rebound or guarding. Extremities--no cyanosis or clubbing. No edema. Dermatologic--normal skin turgor, normal color, no abnormal lymph nodes, no rash. Neurologic--cranial nerves II through XII grossly intact.Coarse tremors Rheumatologic--normal range of motion. Psychiatric--normal affect. Results & Data Results & Data Vital Signs (Past 12 Hours) Vital Signs Temp Pulse Pulse Pulse Resp BP Pulse Ox 12/08/23 07:53 36.7 C 79 16 133/88 95 12/08/23 04:00 37.1 C 68 68 20 157/89 H 97 12/08/23 03:00 65 19 129/79 92 O2 Del Method 12/08/23 07:53 Room Air 12/08/23 04:00 Room Air 12/08/23 03:00 Room Air PG Care Time/CCT Total # of Minutes Spent Total Time Spent with Patient: Total time spent is greater than 50% in coordination of care (as documented) at patient's floor/unit and/or counseling patient: Coding Level of Care Code 88115 SUB INP/OBS CARE 235MIN Diagnoses Cholelithiasis K80.20 Type 2 diabetes mellitus with insulin therapy E11.9; Z79.4 Permanent atrial fibrillation I48.21 Atrial fibrillation type: permanent Essential hypertension I10 Hypertension type: essential hypertension Acquired hypothyroidism E03.9 Hypothyroidism type: acquired Dyslipidemia E78.5 BPH (benign prostatic hyperplasia) N40.0 (3) Atrial fibrillation Atrial fibrillation type: permanent Qualified Code(s): I48.21 - Permanent atrial fibrillation (4) Hypertension Hypertension type: essential hypertension Qualified Code(s): I10 - Essential (primary) hypertension (5) Hypothyroidism Hypothyroidism type: acquired Qualified Code(s): E03.9 - Hypothyroidism, unspecified
[2023-12-08] MEDS ORDERED: D5W AND NSS 1,000 ML IV SCH (14:15)
[2023-12-08 16:13] VITALS: RESP 18
[2023-12-08] MEDS ORDERED: Nursing to Pharmacy Communication SCH (16:30)
[2023-12-08] MEDS: LANTUS PER UNIT CHARGE SQ SCH (21:24)
[2023-12-08] MEDS: TAMSULOSIN HCL 0.4 MG CAP PO SCH (21:47)
[2023-12-08] MEDS: ROSUVASTATIN CALCIUM 5 MG TAB PO SCH (21:48)
--- NOTE | 2023-12-09 05:39 | Electrocardiogram Report ---
Test Reason : Blood Pressure : */* mmHG Vent. Rate : 76 BPM Atrial Rate : * BPM P-R Int : * ms QRS Dur : 102 ms QT Int : 374 ms P-R-T Axes : * -1 -6 degrees QTcB Int : 420 ms Atrial fibrillation Possible Inferior infarct , age undetermined Abnormal ECG When compared with ECG of 22-Nov-2020 12:17, Borderline criteria for Inferior infarct are now Present Premature ventricular complexes are now Present Confirmed by Homer Madera ([id number]) on 12/09/2023 5:39:13 AM Referred By: Confirmed By: Homer Madera
[2023-12-09 06:24] LABS: Hematocrit (blood only) 40.9 % (42.0-52.0); Hemoglobin 13.8 g/dl (14.0-18.0); Mean Corpuscular Hemoglobin 32.2 pg (25.0-34.0); Mean Corpuscular Hgb Conc 33.7 g/dL (32.0-36.0); Mean Corpuscular Volume 95.6 fL (80.0-100.0); Mean Platelet Volume 10.1 fL (9.4-12.4); Platelet Count 200 K/uL (130-400); RDW Coefficient of Variation 12.7 % (11.5-14.5); RDW Standard Deviation 45.1 fL (36.4-46.3); Red Blood Count 4.28 M/uL (4.70-6.10); White Blood Count 7.11 K/ul (4.8-10.8)
[2023-12-09 06:41] LABS: Albumin Level 3.9 gm/dl (3.4-5.0); BUN Creatinine Ratio 14.1 (10-20); Bilirubin Direct 0.7 mg/dl (0-0.2); Bilirubin,Total 1.6 mg/dl (0.2-1.0); Calcium 8.6 mg/dl (8.6-10.3); Creatinine Clr Calc Pharmacy 89.8 ml/min; Est GFR (African American) 95.3 ml/min; Est GFR (Non-African American) 82.2 ml/min; Potassium 3.5 mmol/L (3.5-5.1); Total Protein 6.4 gm/dl (6.0-8.3)
[2023-12-09 07:11] VITALS: BP 165/98; PULSE 74; TEMP 97.9; O2SAT 98
--- NOTE | 2023-12-09 10:28 | Surgery Progress Note ---
Date of Service December 09, 2023 Assessment & Plan (1) Acute cholecystitis: Plan: pt denies abd pain, n/v +bm no fever/chills tolerating reg diet LFT downtrending , wbc wnl eager to go home, pt discussed yesterday with Dr. Mota he needs to follow up in the office to schedule outpatient cholecystectomy Return precautions given Admission and Anticipated Discharge Date Admission Date: December 08, 2023 Supervising Physician Co-Signing Physician Notes Patient discussed with Pauly BLANCO, agree with above. Tolerated diet and his LFTs are downtrending. He will follow-up as an outpatient for elective cholecystectomy. Return precautions given. Subjective pt denies abd pain tolerating diet no n/v Review of Systems Constitutional: no fever and no chills Respiratory: no dyspnea Gastrointestinal: no abdominal pain, no nausea and no vomiting Physical Exam Constitutional: cooperative and comfortable; no acute distress Respiratory: normal respiratory effort and able to speak in complete sentenc es; no respiratory distress Cardiovascular: Rate/Rhythm: regular rate Gastrointestinal (Abdomen): Percussion/Palpation: abdomen soft; abdomen nontender Results & Data Vital Signs (Past 12 Hours) Vital Signs Temp Pulse Resp BP Pulse Ox O2 Del Method 12/09/23 07:07 97.9 F 74 18 165/98 H 98 Room Air Results CMP Results: Na 139 mmol/L (136-145) 12/09/23 K 3.5 mmol/L (3.5-5.1) 12/09/23 Cl 105 mmol/L (98-107) 12/09/23 CO2 29 mmol/L (21-32) 12/09/23 Anion Gap 5 (3-11) 12/09/23 BUN 13 mg/dl (6-23) 12/09/23 Creatinine 0.92 mg/dl (0.6-1.4) 12/09/23 Estimated GFR ( Amer) 95.3 ml/min 12/09/23 Estimated GFR (Non-Af Amer) 82.2 ml/min 12/09/23 BUN/Creatinine Ratio 14.1 (10-20) 12/09/23 Glu 96 mg/dl (70-99(Fasting)) 12/09/23 Ca 8.6 mg/dl (8.6-10.3) 12/09/23 Total Bilirubin 1.6 mg/dl (0.2-1.0) H 12/09/23 Direct Bilirubin 0.7 mg/dl (0-0.2) H 12/09/23 AST 182 U/L (13-39) H 12/09/23 ALT 251 U/L (7-52) H 12/09/23 Alkaline Phosphatase 131 U/L (34-104) H 12/09/23 TP 6.4 gm/dl (6.0-8.3) 12/09/23 Albumin 3.9 gm/dl (3.4-5.0) 12/09/23 Globulin 2.8 gm/dl (2.5-4.0) 12/08/23 Albumin/Globulin Ratio 1.5 (0.9-2) 12/08/23 Results CBC w Diff Results: RBC 4.28 M/uL (4.70-6.10) L 12/09/23 WBC 7.11 K/ul (4.8-10.8) 12/09/23 Hgb 13.8 g/dl (14.0-18.0) L 12/09/23 Hct 40.9 % (42.0-52.0) L 12/09/23 MCV 95.6 fL (80.0-100.0) 12/09/23 MCH 32.2 pg (25.0-34.0) 12/09/23 MCHC 33.7 g/dL (32.0-36.0) 12/09/23 RDW Standard Deviation 45.1 fL (36.4-46.3) 12/09/23 RDW Coefficient of Variation 12.7 % (11.5-14.5) 12/09/23 Plt Count 200 K/uL (130-400) 12/09/23 MPV 10.1 fL (9.4-12.4) 12/09/23 Neutrophils (%) (Auto) 80.8 % 12/08/23 Lymphocytes (%) (Auto) 11.1 % 12/08/23 Monocytes # (Auto) 0.70 K/uL (0.11-0.59) H 12/08/23 Eosinophils # (Auto) 0.01 K/uL (0.00-0.50) 12/08/23 Immature Granulocyte % (Auto) 0.3 % 12/08/23 Neutrophils # (Auto) 7.61 K/uL (1.40-6.50) H 12/08/23 Lymphocytes # (Auto) 1.05 K/uL (1.20-3.40) L 12/08/23 Monocytes # (Auto) 0.70 K/uL (0.11-0.59) H 12/08/23 Eosinophils # (Auto) 0.01 K/uL (0.00-0.50) 12/08/23 Basophils # (Auto) 0.03 K/uL (0.00-0.20) 12/08/23 Immature Granulocyte # (Auto) 0.03 K/uL (0.01-0.20) 4 PG Care Time/CCT Total # of Minutes Spent Total Time Spent with Patient: Total time spent is greater than 50% in coordination of care (as documented) at patient's floor/unit and/or counseling patient: Coding Level of Care Code 64776 SUB INP/OBS CARE 05/06MIN Diagnoses Acute cholecystitis K81.0
[2023-12-09] MEDS: AMOXICILLIN/CLAVULANATE 875 MG TAB PO SCH (10:45)
--- NOTE | 2023-12-09 10:58 | Discharge Summary ---
Discharge Summary Date of Service December 09, 2023 Principal Dx & Hospital Course #1 = Principal Diagnosis (1) Cholelithiasis: P/w RUQ/chest pain -US was concerning for cholecystitis with + Bravo's sign, MRCP with cholelithiasis, and possible acute/chronic cholecystitis, no obstructing stone LFTs trended upward in an obstructive pattern but then pain resolved, tolerated low fat diet, and LFTs trending back downwrd on day of discharge Patient prefers to wait and have elective outpt cholecystectomy. Finish out 10 day course of po abx with Cipro and Flagyl-he says Augmentin makes him feel strange and prefers not to take it-he has done well with Cipro/Flagyl in the past (2) Type 2 diabetes mellitus with insulin therapy: Diabetes - chronic -continue home meds, resume metformin 2 days after MRI contrast -Gabapentin (3) Atrial fibrillation: -Patient has history of A fib, in permanent Afib, rates controlled -Continue metoprolol -Eliquis on hold for possible surgical intervention- resumed on discharge but will need to be held prior to surgery (4) Hypertension: -Continue Lisinopril. Was recently increased as an outpatient to 10mg po BID. Patient has been taking it BID but does not like how it makes him feel- will continue daily dosing for now as remains normotensive. 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 Patient was in his usual state of heal th until he had abrupt onset of abdominal pain - upper abdominal pain with radiation into the back. He became diaphoretic as well. No fever, chills, nausea or vomiting. Pain lasted approximately 3-4 hours and improved since being in the ER. Patient with no history of prior episodes. No known gallbladder issues. IN the ER patient afebrile, hypertensive otherwise HD stable ER Course: Zosyn Discharge Exam Constitutional WD/WN, vitals as above Respiratory normal respiratory effort, lungs clear to auscultation Cardiovascular Rate/Rhythm: regular rate and + irregularly irregular Heart Sounds: no murmur Extremities: no pedal edema Gastrointestinal (Abdomen) normal bowel sounds, soft, nontender, no hepatosplenomegaly Psychiatric A+Ox3, euthymic affect Discharge Plan Discharge Items Patient Disposition: Home - Self-Care Reason For Visit: ABD PAIN, ABNORMAL LFTs Discharge Diagnosis: Symptomatic cholelithiasis with acute on possible chronic cholecystitis Condition on Discharge: Good Activity: Resume your previous activity Non-emergency contact: Primary Care Provider and Surgeon Call non-emergency contact if: you have any medication questions, your symptoms worsen, your pain is not controlled and you have a fever Follow-up/Referrals: Ventura Rogers III, CRNP [Primary Care Provider] - (Follow-up within 1 to 2 weeks) Alexei Mota DO, FACS [Physician] - (Follow-up within 2 weeks to discuss removing your gallbladder) Diet: Carb Consistent or DM2 and Low Fat Addtl Attending Provider Instructions: Please finish out the course of antibiotics (if tolerated given your history of side effects with antibiotics). Please schedule an appointment with a Surgeon to discuss removal of your gallbladder to prevent future attacks of the gallbladder. Pending Studies at Discharge: No Stand-Alone Forms: My Rebtel, Smoking Cessation Medications and DC Order Prescriptions: New ciprofloxacin HCl 500 mg tablet 500 mg PO BID Qty: 16 0RF metronidazole 500 mg tablet 500 mg PO TID Qty: 24 0RF Continued rosuvastatin [Crestor] 5 mg tablet 5 mg PO HS Rx Instructions: prescribed by Cardiology (Dr. Weaver) (DME) lancets [BD Ultra Fine Lancets] 33 gauge misc See Rx Instructions .ROUTE .MEDSUPPLY Qty: 300 3RF Dose Instruction: As directed Rx Instructions: TEST THREE TIMES DAILY; DX CODE- E11.65 (DME) Contour Test Strips Strip See Rx Instructions .ROUTE .MEDSUPPLY Qty: 300 3RF Dose Instruction: As directed Rx Instructions: TEST THREE TIMES DAILY; DX CODE- E11.65 (DME) pen needle, diabetic [Comfort EZ Pen [place]] 32 gauge x 5/32" needle See Rx Instructions .Route Qty: 100 3RF Rx Instructions: As directed with insulin Eliquis 5 mg tablet 5 mg PO BID Qty: 180 3RF metoprolol succinate 25 mg tablet extended release 24 hr 25 mg PO QAM levothyroxine 75 mcg tablet 75 mcg PO DAILY Qty: 30 8RF gabapentin 300 mg capsule 300 mg PO BID Patient Comments: KEEP FORGETTING TO TAKE - AVERAGES 1-2 TIMES A DAY tadalafil 20 mg tablet 20 mg PO UD PRN (Reason: Sexual Activity) Qty: 10 11RF tamsulosin [Flomax] 0.4 mg capsule 0.4 mg PO HS Qty: 90 3RF lisinopril [Zestril] 10 mg tablet 10 mg PO BID Qty: 180 3RF coenzyme Q10 [Co Q-10] 100 mg capsule 100 mg PO QAM Patient Comments: (Ubiquinol) multivitamin [Daily Multi-Vitamin] tablet 1 tab PO QAM docusate sodium [Colace] 100 mg capsule 100 mg PO BID saw palmetto 450 mg Capsule 450 mg PO QAM cholecalciferol (vitamin D3) [Dialyvite Vitamin D] 125 mcg (5,000 unit) capsule 125 mcg PO HS insulin degludec [Tresiba FlexTouch U-200] 200 unit/mL (3 mL) insulin pen 36 unit SQ HS Held metformin 1,000 mg tablet 1,000 mg PO BID 90 Days Qty: 180 3RF Hold Instructions: Resume on 12/10/23. Discharge Orders: Discharge Order (Routine); Ordered 12/09/23 Ordered By: Gladys Soto Admission Data Admit Date/Time: 12/08/23 01:24 Attending Provider: Gladys Soto Admit Provider: Rosie King Primary Care Provider: Ventura Rogers III Other Providers: Rosie King; Alexei Mota; Yang Cason Jr Hospital Stay Data Consultations 12/08/23 00:51 ED Decision to Admit Stat 12/08/23 05:57 Consult General Surgery Routine 12/08/23 07:18 Consult Gastroenterology Routine Diagnostic Imagining Performed 12/07/23 23:10 US gallbladder Stat 12/08/23 07:22 MR MRCP Routine Pending Results Patient Have Any Pending Studies at Discharge: No Discharge Instructions Given to Patient (Per Discharging Provider) Please finish out the course of antibiotics (if tolerated given your history of side effects with antibiotics). Please schedule an appointment with a Surgeon to discuss removal of your gallbladder to prevent future attacks of the gallbladder. Total Time Total Time Spent Total Time Spent (In Minutes): 35 min Total Time Includes: Examination of the Patient, Discharge Planning, Medication Reconciliation and Communication With Other Providers Coding Level of Care Code 44121 INP/OBS DISCH >30 MIN Diagnoses Cholelithiasis K80.20 Type 2 diabetes mellitus with insulin therapy E11.9; Z79.4 Permanent atrial fibrillation I48.21 Atrial fibrillation type: permanent Essential hypertension I10 Hypertension type: essential hypertension Acquired hypothyroidism E03.9 Hypothyroidism type: acquired Dyslipidemia E78.5 BPH (benign prostatic hyperplasia) N40.0
== END 2023-12-09 11:18 | disposition home or self-care (01) ==
LOC: ED 21:50 → 3E 21:50 → SUATTDRO 12-08 01:24 → 3E 12-08 03:55